=== PATIENT | male | born 1970 | race Caucasian/White ===

== ENCOUNTER 2016-10-04 12:15 | Inpatient (IN) | payer BC ==
--- NOTE | ~2016-10-04 | DS ---
Unit #: [id number] #: [id number] Patient: WILTON AYOUB JR [id number] [address] [address] [id number] I MR#: [id number] NAME: WILTON AYOUB JR ROOM: [facility] Age: 46 Sex: M Admission Date: 10/04/2016 : 1970 Discharge Date: Attending Physician: Lars Zhao M.D. Primary Care Physician: Amanda Tapia A.P.R.N. DISCHARGE SUMMARY DIAGNOSIS Sigmoid diverticulitis with microperforation. HOSPITAL COURSE The patient is a 46-year-old gentleman, who presented with 1-week history of left lower quadrant abdominal pain. CT scan showed what appears to be an inflammation of the colon with air outside the lumen in the retroperitoneal space. He was assess for possible interventional Radiology drainage. This was not possible. He was started on antibiotics. He remained afebrile and had resolution of his pain and tolerate regular diet. DISPOSITION The patient will be discharged home in good condition. DISCHARGE INSTRUCTIONS He is to follow regular diet as tolerated. He is to follow up with Dr. Zhao in 2 weeks. DISCHARGE MEDICATIONS Regular home medications and Flagyl 500 mg q.6 hours x6 days. Colace 100 mg b.i.d. PLAN For outpatient colonoscopy and possible resection. Dictated by... Poli Vee/patty TD: 10/06/2016 07:56 JOB #: [id number] Unit #: [id number] #: [id number] Patient: WILTON AYOUB JR DISCHARGE SUMMARY Page 1 of 1 X Lars Zhao MD DISCHARGE SUMMARY
--- NOTE | ~2016-10-04 | CO ---
Unit #: [id number] #: [id number] Patient: WILTON AYOUB JR [id number] [address] [place], [place] [address] [id number] I MR#: [id number] NAME: WILTON AYOUB JR ROOM: 77749 Age: 46 Sex: M Admission Date: 10/04/2016 : 1970 Attending Physician: Lars Zhao M.D. Primary Care Physician: Amanda Tapia A.P.R.N. CONSULTATION REPORT BRIEF HISTORY The patient is a 46-year-old gentleman with a 1-week history of left lower quadrant abdominal pain. He presented to his primary care doctor who ordered a CT scan. CT scan showed diverticulitis with a 6.5 cm abscess with air-fluid level. He denies any fever or chills. No trauma. PAST MEDICAL HISTORY He has hypertension. PAST SURGICAL HISTORY Hip replacement. SOCIAL HISTORY Does smoke. No alcohol. FAMILY HISTORY Negative for GI malignancy. REVIEW OF SYSTEMS No cardiopulmonary complaints at this time. Ten systems reviewed and negative. PHYSICAL EXAMINATION GENERAL: He is awake, alert, in no distress. VITAL SIGNS: Temperature 98, pulse 92, respirations 16, blood pressure 141/83. HEENT: Unremarkable. NECK: Neck is supple. No JVD. Trachea midline. LUNGS: Clear to auscultation. Bilateral breath sounds symmetric. CARDIOVASCULAR: Regular rate and rhythm. ABDOMEN: His abdomen is soft. It is mildly tender in the left lower quadrant. No point tenderness. No rebound. No masses. No hernias. EXTREMITIES: No clubbing, cyanosis or edema. DIAGNOSTIC STUDIES LABS: White count 11.9, hemoglobin 13. ASSESSMENT Diverticulitis with contained perforation. PLAN Recommend IV fluids, antibiotics and will have interventional radiology assess for possible drainage. Unit #: [id number] #: [id number] Patient: WILTON AYOUB JR Dictated by... Poli Vee/rajesh TD: 10/05/2016 13:05 JOB #: [id number] CONSULTATION REPORT Page 1 of 1 X Lars Zhao MD X CONSULTATION REPORT
[~2016-10-04 12:15] MED LIST: ALEVE; DIOVAN; HCTZ; IBUPROFEN800 MG; PERCOCET 5-3251 TAB PO; PREDNISONE PO; ROBAXIN PO; SIMVASTATIN10 MG; TRICOR134 MG
[2016-10-04 12:18] LABS: BASOPHIL# 0.1 X10e3 (0-0.3); BASOPHIL% 0.5 % (0-2.5); EOSINOPHIL# 0.5 X10e3 (0-0.7); EOSINOPHIL% 4.1 % (0.0-7.0); HEMATOCRIT 40.9 % (38.0-50.0); HEMOGLOBIN 13.9 gm/dL (13.0-16.0); LYMPHOCYTE# 1.8 X10e3 (1.0-3.5); LYMPHOCYTE% 15.2 % (17.0-45.0); MEAN CELL VOLUME 86.9 FL (83-96); MEAN CORPUSCULAR HEMOGLOBIN 29.6 PG (28-34); MEAN CORPUSCULAR HGB CONC 34.1 g/dL (30-36); MEAN PLATELET VOLUME 8.7 FL (6.5-11.5); MONOCYTE# 0.7 X10e3 (0-1.0); NEUTROPHIL# 8.7 X10e3 (1.5-7.1); NEUTROPHIL% 74.2 % (40-75); PLATELET COUNT 310 X10e3 (140-420); RED CELL DISTRIBUTION WIDTH 12.1 % (11.0-15.5); WHITE BLOOD COUNT 11.7 X10e3 (4.0-10.5)
[2016-10-04 12:24] LABS: DIFF IND NO
[2016-10-04 12:45] LABS: ALBUMIN SERUM 3.4 g/dL (3.5-5.0); BILIRUBIN, DIRECT 0.2 mg/dL (0.0-0.2); BILIRUBIN,INDIRECT 0.6 mg/dL (0.0-0.9); BILIRUBIN,TOTAL 0.8 mg/dL (0.2-2.0); BUN/CREATININE RATIO 16.66; CALCIUM SERUM 8.7 mg/dL (8.4-10.2); CREATININE SERUM 0.9 mg/dL (0.6-1.4); GLOM FILT RATE Estimated 103.5 mL/min (>60); POTASSIUM 3.1 mmol/L (3.5-5.1); PROTEIN TOTAL SERUM 7.3 g/dL (6.0-8.3)
[2016-10-04 13:31] LABS: URINE SOURCE CLEAN CATCH
[2016-10-04 13:50] LABS: URINE APPEARANCE CLEAR; URINE BILIRUBIN NEG (NEG); URINE BLOOD NEG (NEG); URINE COLOR YELLOW; URINE GLUCOSE NEG (NEG); URINE KETONE NEG (NEG); URINE LEUKOCYTE ESTERASE NEG (NEG); URINE NITRATE NEG (NEG); URINE PH 5.5 (5-8); URINE PROTEIN NEG (NEG); URINE SPECIFIC GRAVITY 1.051 (1.003-1.035); URINE UROBILINOGEN 0.2 MG/DL (NEG)
[2016-10-04 14:04] LABS: CULTURE INDICATED? NO
[2016-10-04 14:38] LABS: PARTIAL THROMBOPLASTIN TIME 29.3 SECONDS (23.5-31.3); PROTHROMBIN TIME (PATIENT) 10.6 SECONDS (9.6-11.5)
[2016-10-04] MEDS ORDERED: DIOVAN160 MG PO (14:47)
[2016-10-04] MEDS ORDERED: SIMVASTATIN10 MG PO (14:47)
[2016-10-04] MEDS ORDERED: FENOFIBRATE145 M1 PO (14:48)
[2016-10-05 06:09] LABS: HEMATOCRIT 34.9 % (38.0-50.0); MEAN CELL VOLUME 87.7 FL (83-96); MEAN CORPUSCULAR HEMOGLOBIN 29.7 PG (28-34); MEAN CORPUSCULAR HGB CONC 33.8 g/dL (30-36); MEAN PLATELET VOLUME 8.5 FL (6.5-11.5); RED BLOOD COUNT 3.98 X10e (3.90-5.60); RED CELL DISTRIBUTION WIDTH 12.4 % (11.0-15.5); WHITE BLOOD COUNT 11.7 X10e3 (4.0-10.5)
[2016-10-05 06:12] LABS: HEMOGLOBIN 11.8 gm/dL (13.0-16.0)
[2016-10-05 06:46] LABS: BUN/CREATININE RATIO 11.25; CALCIUM SERUM 8.1 mg/dL (8.4-10.2); CREATININE SERUM 0.8 mg/dL (0.6-1.4); GLOM FILT RATE Estimated 108.7 mL/min (>60); POTASSIUM 3.2 mmol/L (3.5-5.1)
[2016-10-06 03:23] LABS: BASOPHIL# 0.1 X10e3 (0-0.3); BASOPHIL% 0.7 % (0-2.5); EOSINOPHIL# 0.5 X10e3 (0-0.7); HEMATOCRIT 37.2 % (38.0-50.0); HEMOGLOBIN 12.2 gm/dL (13.0-16.0); LYMPHOCYTE# 2.5 X10e3 (1.0-3.5); LYMPHOCYTE% 25.7 % (17.0-45.0); MEAN CELL VOLUME 89.7 FL (83-96); MEAN CORPUSCULAR HEMOGLOBIN 29.4 PG (28-34); MEAN CORPUSCULAR HGB CONC 32.8 g/dL (30-36); MONOCYTE# 0.7 X10e3 (0-1.0); MONOCYTE% 7.2 % (3.0-12.0); NEUTROPHIL# 5.9 X10e3 (1.5-7.1); NEUTROPHIL% 61.4 % (40-75); PLATELET COUNT 304 X10e3 (140-420); RED BLOOD COUNT 4.15 X10e (3.90-5.60); RED CELL DISTRIBUTION WIDTH 12.7 % (11.0-15.5); WHITE BLOOD COUNT 9.6 X10e3 (4.0-10.5)
[2016-10-06 03:27] LABS: DIFF IND NO
[2016-10-06] MEDS ORDERED: DOCUSATE SODIU100 MG PO (09:30)
[2016-10-06] MEDS ORDERED: FLAGYL PO (09:31)
[2016-10-06] MEDS ORDERED: KEFLEX500 M1 PO (09:32)
== END 2016-10-06 11:30 | disposition home or self-care (01) | DRG 392 ==
LOC: CED 12:15 → CEDOF 13:48 → C4C 10-05 21:13
PROVIDERS: Emergency Medicine; Radiology Diagnostic Radiology; Surgery
DX: K57.20 Diverticulitis of large intestine with perforation and abscess without bleeding (principal); I10 Essential (primary) hypertension; E78.00 Pure hypercholesterolemia, unspecified; Z96.642 Presence of left artificial hip joint
CPT/HCPCS: 36415; 80048; 80076; 81003; 83690; 85025; 85027; 85610; 85730; 96361; 96365; 96375; 99285; J2270; J2405; J2543

== ENCOUNTER → 2016-10-11 | Outpatient (CLI) | payer BC ==
[~2016-10-11] MED LIST changes: +DIOVAN160 MG PO; +DOCUSATE SODIU100 MG PO; +FENOFIBRATE145 M1 PO; +FLAGYL PO; +HYDROCODON-ACE1 EAC9 PO; +KEFLEX500 M1 PO; +SIMVASTATIN10 MG PO; +VALSARTAN-HCTZ1 EAC1 PO
--- NOTE | ~2016-10-11 | CT134 ---
[facility] A Service of [facility] & [facility] RADIOLOGY TEXT RESULTS PATIENT: WILTON CHAMPION JR LOCATION: [facility] : 74 UNIT #: [id number] AGE: [address]: Lars Zhao MD SEX: M ORDER DR: [id number] [facility] [address] [place], [place] [address] [id number] O MR#: [id number] Acc #: [id number] NAME: WILTON CHAMPION JR : 1970 SEX: M STUDY DATE/TIME: 10/11/2016 15:08 UNIT: [facility] ROOM: STUDY DESCRIPTION: CT Guide Attending Physician: Lars Zhao M.D. Referring Physician: Lars Zhao M.D. Ordering Physician: Lars Zhao M.D. Primary Care Physician: Amanda Tapia A.P.R.N. MEDICAL IMAGING REPORT This report is preliminary unless electronic signature is present EXAM Attempted CT-guided drainage INDICATION MR. Champion is a 46-year-old man with a history of diverticulitis. His most recent CT scan on October 11, 2016 showed an air and fluid containing collection within the left hemipelvis. He was referred for attempted drain placement. TECHNIQUE This CT examination was performed with one or more of the following radiation dose reduction techniques: automatic exposure control, adjustment of mA and/or kV according to patient size, and iterative reconstruction. PROCEDURE The risks, benefits, and alternatives to the procedure were explained to the patient, and signed, informed consent was obtained. He was placed supine on the CT scanner gantry. A preliminary CT scan was performed through the region of interest. An appropriate site overlying the patients collection was selected. The overlying skin was marked. Patient was prepped and draped in the usual sterile fashion. Time-out was performed as per protocol. Skin and subcutaneous tissues were anesthetized with buffered lidocaine. Anesthesia needle was left in place. Repeat CT scan showed only very minimal window into the collection. At this point, the procedure was terminated. The patient did not receive any conscious sedation during the procedure, although he did receive 150 mcg of Fentanyl for pain relief. IMPRESSION I was unable to access this patient's left harry pelvic abscess due to overlying bowel and a very small window. Procedure was subsequently terminated. This was discussed with Dr. Zhao at the termination of the STS. [facility] A Service of [facility] RADIOLOGY TEXT RESULTS PATIENT: WILTON CHAMPION JR LOCATION: [facility] : 74 UNIT #: [id number] AGE: [address]: Lars Zhao MD SEX: M ORDER DR: procedure. We will plan on repeat CT scan on Friday, October 14, to see if the collection has enlarged or become more amenable to drain placement or has improved. Dictated by... Neris Deluna M.D. THIS IS AN ELECTRONICALLY VERIFIED REPORT Neris Deluna M.D. at 10/14/2016 5:08 PM BHAVANI/jolene TD: 10/14/2016 11:11 JOB #: [id number] MEDICAL IMAGING REPORT Page 1 of 1 COPY
== END | disposition home or self-care (01) ==
LOC: CIVR 13:25
DX: K65.1 Peritoneal abscess (principal)
CPT/HCPCS: 77012; J2250; J3010

== ENCOUNTER → 2016-10-11 | Outpatient (CLI) | payer BC ==
--- NOTE | ~2016-10-11 | CT4 ---
[facility] A Service of [facility] RADIOLOGY TEXT RESULTS PATIENT: WILTON AYOUB JR LOCATION: [facility] : 74 UNIT #: [id number] AGE: [address]: Lars Zhao MD SEX: M ORDER DR: [id number] [address] [address] [id number] O MR#: [id number] Acc #: [id number] NAME: WILTON AYOUB : 1970 SEX: M STUDY DATE/TIME: 10/11/2016 8:48 UNIT: [facility] ROOM: STUDY DESCRIPTION: CT Abd and Pelv Wo Cont Attending Physician: Lars Zhao M.D. Referring Physician: Lars Zhao M.D. Ordering Physician: Lars Zhao M.D. Primary Care Physician: Amanda Tapia A.P.R.N. MEDICAL IMAGING REPORT This report is preliminary unless electronic signature is present. EXAM CT of the abdomen and pelvis without contrast, 10/11/2016 COMPARISON 10/04/2016 HISTORY Left lower quadrant pain for over 1 week. Followup. On antibiotics for 7 days. TECHNIQUE Transaxial imaging of the abdomen and pelvis was performed without contrast. This CT exam was performed with one or more of the following radiation dose reduction techniques: automatic exposure control, adjustment of mA and/or kV according to patient size, and iterative reconstruction. COMPARISON Compared directly to the patient's most recent scan of October 04. FINDINGS Scans through the lung bases are normal. The liver and spleen appear unremarkable. Gallbladder is normal. Adrenal glands and pancreas are normal and both kidneys are normal. The air collection identified adjacent to the colon is a little better defined on the current study. It does contain some fluid dependently. The entire collection measures about 7.5 x 4.2 cm. The inflammation around the colon has decreased relative to the last study. Redemonstrated is diffuse diverticulosis. CONCLUSION Overall the inflammation around the sigmoid colon is better, however there is an air and fluid collection present which measures 7.5 x 4.2 cm. It is [facility] A Service of [facility] RADIOLOGY TEXT RESULTS PATIENT: WILTON AYOUB JR LOCATION: [facility] : 74 UNIT #: [id number] AGE: [address]: Lars Zhao MD SEX: M ORDER DR: predominantly air but has a little more fluid in it than it did previously. It likely represents a developing diverticular abscess. At this point it could be aspirated under CT guidance if clinically indicated. Dictated by... Lars Henriquez M.D. THIS IS AN ELECTRONICALLY VERIFIED REPORT Lars Henriquez M.D. at 10/11/2016 4:26 PM Paul TD: 10/11/2016 11:17 JOB #: [id number] MEDICAL IMAGING REPORT Page 1 of 1
== END | disposition home or self-care (01) ==
LOC: SCT 08:36
DX: R10.9 Unspecified abdominal pain (principal); K52.9 Noninfective gastroenteritis and colitis, unspecified
CPT/HCPCS: 74176

== ENCOUNTER → 2016-10-14 | Outpatient (CLI) | payer BC ==
--- NOTE | ~2016-10-14 | CT2 ---
[facility] A Service of [facility] & [facility] RADIOLOGY TEXT RESULTS PATIENT: WILTON CHAMPION JR LOCATION: [facility] : 74 UNIT #: [id number] AGE: [address]: Lars Zhao MD SEX: M ORDER DR: [id number] [facility] [address] [place], [place] [address] [id number] O MR#: [id number] [facility] #: [id number] NAME: WILTON CHAMPION : 1970 SEX: M STUDY DATE/TIME: 10/14/2016 9:30 UNIT: [facility] ROOM: STUDY DESCRIPTION: CT Abd and Pelv W Cont Attending Physician: Lars Zhao M.D. Referring Physician: Lars Zhao M.D. Ordering Physician: Lars Zhao M.D. Primary Care Physician: Amanda Tapia A.P.R.N. MEDICAL IMAGING REPORT This report is preliminary unless electronic signature is present EXAM CT abdomen and pelvis INDICATION Mr. Champion is a 46-year-old gentleman with the history of a perforated diverticulitis. On his most recent CT on 10/11/2016, he was noted to have an air and fluid-containing collection within the left hemipelvis. He did undergo attempted drainage. This was unsuccessful as there was insufficient window for drainage. He returns for a followup. TECHNIQUE Axial CT images were obtained from the dome of the diaphragm through the symphysis pubis following the administration of intravenous contrast material. This CT exam was performed with one or more of the following radiation dose reduction techniques: automatic exposure control, adjustment of mA and/or kV according to patient size, and iterative reconstruction. FINDINGS Images through the lung bases are clear. Patient does have diffuse hepatic steatosis and spleen is enlarged measuring 15.3 cm in AP dimensions. No suspicious hepatic lesions are seen. There is the suggestion of some high-density material within the gallbladder. The possibly of stones or sludge is not excluded. This could be better assessed with gallbladder ultrasound. Adrenal glands, kidneys, and pancreas are within normal limits. Patient is noted to have an air and fluid-containing collection seen within the left hemipelvis. It does appear smaller than on the prior study now measuring 5.3 x 3.0 cm, previously 7.5 x 4.2 cm. There is a second collection which is developing more inferiorly which has increased in size when compared to the prior study now measuring 3.1 x 2.2 cm, STS. [facility] A Service of [facility] RADIOLOGY TEXT RESULTS PATIENT: WILTON CHAMPION JR LOCATION: [facility] : 74 UNIT #: [id number] AGE: [address]: Lars Zhao MD SEX: M ORDER DR: previously 2.1 x 1.6 cm. Patient is also noted to have some reactive fluid seen within the mesentery which is new when compared to the prior examination. There is persistent wall thickening involving the sigmoid colon. A trace amount of free fluid is seen tracking along the left pericolic gutter. There is no evidence of mechanical bowel obstruction. The appendix is visualized and is within normal limits. There is a small fat-containing umbilical hernia. Prostate gland contains a few dystrophic calcifications. Urinary bladder is within normal limits. Patient does have a left hip arthroplasty. Degenerative changes are noted at L5-S1. There is some atherosclerotic involvement of the abdominal aorta which continues into the iliac vessels, although I am not convinced it results in any flow-limiting stenosis. IMPRESSION 1. The patient is again noted to have a collection within the left hemipelvis. This measures up to 5.3 x 3 cm, previously it measured 7.5 x 4.2 cm. So it has decreased slightly in size. It is not amenable to percutaneous drainage due to overlying colon. A second collection, which is seen more inferiorly, has increased in size and now measures up to 3.1 x 2.2 cm, previously 2.1 x 1.6 cm, which is favored to represent an additional small abscess. It is also not amenable to percutaneous drainage. Furthermore, patient is now noted to have a small amount of loculated fluid seen in between bowel loops likely reflecting some reactive fluid as is trace free fluid along the left pericolic gutter. Process is not resulting in any obstruction at this time. 2. High-density material within the gallbladder. This potentially may reflect some stones or sludge, although it does not layer dependently, it would be better assessed with dedicated gallbladder ultrasound. 3. Splenomegaly of uncertain clinical significance. 4. Diffuse hepatic steatosis. 5. Patient's sigmoid colon remains persistently thick-walled and inflamed. This extends diffusely throughout the sigmoid colon. 6. Also noted, but not mentioned in the report, anterior to the proximal sigmoid colon, there is an additional very tiny localized collection. I am uncertain if this reflects a diverticulum or an additional small localized perforation. Dictated by... Neris Deluna M.D. THIS IS AN ELECTRONICALLY VERIFIED REPORT Neris Deluna M.D. at 10/14/2016 5:08 PM AFF/aa TD: 10/14/2016 13:14 JOB #: [id number] [facility] A Service of [facility] & [facility] RADIOLOGY TEXT RESULTS PATIENT: WILTON CHAMPION JR [id number] 74 UNIT #: [id number] AGE: [address]: Lars Zhao MD SEX: M ORDER DR: MEDICAL IMAGING REPORT Page 1 of 1 COPY
== END | disposition home or self-care (01) ==
LOC: CCAT 08:45
DX: T81.4XXA Infection following a procedure, initial encounter (principal); R16.1 Splenomegaly, not elsewhere classified; K76.0 Fatty (change of) liver, not elsewhere classified; K52.9 Noninfective gastroenteritis and colitis, unspecified
CPT/HCPCS: 74177; Q9967

== ENCOUNTER 2016-10-15 05:25 | Inpatient (IN) | payer BC ==
--- NOTE | ~2016-10-15 | DS ---
Unit #: [id number] #: [id number] Patient: WILTON AYOUB JR [id number] [address] [place], [place] [address] [id number] I MR#: [id number] NAME: WILTON AYOUB JR ROOM: 462 Age: 46 Sex: M Admission Date: 10/15/2016 : 1970 Discharge Date: 10/19/2016 Attending Physician: Brian Hernandez III, M.D. Primary Care Physician: Amanda Tapia A.P.R.N. DISCHARGE SUMMARY CONSULTATIONS None. PROCEDURE PERFORMED On the day of admission, he underwent exploratory laparotomy with takedown of splenic flexure, sigmoid colectomy, and colorectal anastomosis. ADMITTING DIAGNOSIS History of acute diverticulitis with pelvic abscess. DISCHARGE DIAGNOSIS History of acute diverticulitis with pelvic abscess. BRIEF HOSPITAL COURSE This is a 46-year-old gentleman who was admitted for treatment of acute diverticulitis with microperforation and pelvic abscess. He underwent bowel prep the day before admission and underwent exploratory laparotomy and sigmoid colectomy with anastomosis. Postoperatively, he had an uneventful course. He did run some fevers and we followed up on his cultures which showed primarily E. coli and he was switched to Levaquin based on sensitivities and had improvement in his white count and fever after that. He was advanced to a regular diet and was having bowel movements prior to discharge. DISPOSITION Discharge to home. He is to follow up with me in the office on Friday to have his ethan removed. He was given a script for [place] and told to resume his home medications. He has been instructed not to drive until off pain meds for 48 hours and no lifting greater than ten pounds and it is okay to shower. Dictated by... Brian Hernandez III, M.D. VCL/jose TD: 10/22/2016 06:50 JOB #: [id number] Unit #: [id number] #: [id number] Patient: WILTON AYOUB JR DISCHARGE SUMMARY Page 1 of 1 X Brian Hernandez III, MD X DISCHARGE SUMMARY
--- NOTE | ~2016-10-15 | OR ---
Unit #: [id number] #: [id number] Patient: WILTON AYOUB JR [id number] [address] [place], [place] [address] [id number] Monika MR#: [id number] NAME: WILTON AYOUB JR ROOM: 462 Date of Procedure: 10/15/2016 Admission Date: 10/15/2016 Surgeon: Brian Hernandez III, M.D. : 1970 Attending Physician: Brian Hernandez III, M.D. Primary Care Physician: Amanda Tapia A.P.R.N. OPERATIVE REPORT PREOPERATIVE DIAGNOSES Acute diverticulitis with pelvic abscess. POSTOPERATIVE DIAGNOSES Acute diverticulitis with pelvic abscess. PROCEDURES PERFORMED 1. Exploratory laparotomy with sigmoid colectomy with colorectal anastomosis. 2. Takedown of splenic flexure. 3. Drainage of multiple pelvic abscesses. INTERNATIONAL NURSE Dr. Wilton Cortez. SPECIMEN Cultures were sent to microbiology and colon was sent to pathology. COMPLICATIONS None apparent. ESTIMATED BLOOD LOSS 100 mL. DRAINS None. INDICATIONS FOR PROCEDURE This is a 46-year-old gentleman, who presented with his first episode of acute diverticulitis and had what looked like a microperforation with pelvic abscess that was not amenable to percutaneous drainage. He was placed on antibiotics and underwent a repeat CT scan, which showed smaller abscess initially, but had 2 other small abscesses that were forming. He is here today after bowel prepping for attempts of colon resection with anastomosis. He does understand the possibility of having undergo colostomy placement as well as complications of the procedure that include bleeding, infection, abscess, and possibility of anastomotic leak as well as injury to ureters. DESCRIPTION OF PROCEDURE After consent was obtained, the patient was brought to the operating room and placed in the supine position. General anesthetic was administered. Unit #: [id number] #: [id number] Patient: WILTON AYOUB JR NG tube and Nino catheter were placed. He was then placed in Mark stirrups. I irrigated his rectum with Betadine. We then prepped and draped his abdomen and perineum in standard surgical fashion. I made a midline laparotomy and entered the peritoneal cavity without any difficulty. I placed a protractor to help protect the wound edges. I then was able to mobilize the sigmoid colon and in doing so, broke up the pelvic abscesses. Cultures were obtained. I then began by scoring the lateral peritoneal attachments of the sigmoid colon as well as along the left colon and took down the splenic flexure to mobilize this, so that I would have adequate length of the proximal colon for the colorectal anastomosis. Once I had the colon mobilized, I fired a ANNA stapler across the proximal sigmoid colon. I then took down the mesenteric attachments with Kiersten clamps and 0 silk ties. Once I had this down to the peritoneal reflection, I used a contour stapler to divide the distal sigmoid colon. The specimen was then passed off the table. I irrigated and had good hemostasis. Next, I divided the proximal colon. I brought the 29 mm EEA Anvil out through the antimesenteric border and re-stapled the proximal end with a ANNA 75 stapler. I then inserted the other end of the stapler per rectum. This was brought up through the rectal pouch and once it was in good position, the spike was deployed. I then attached the 2 ends of the colon together and once the stapler was locked in good position, it was fired. There was no tension or twisting of the proximal colon. Next, the stapler was disengaged and removed without difficulty. I tested the anastomosis by submerging it under water and occluding the proximal colon and insufflating air per rectum. There was no air leak indicating that this was watertight. I then again irrigated and had good hemostasis. All needle, sponge, and instrument counts were correct x2. I then laid the omentum over the anastomosis. I then reapproximated the fascia with interrupted #1 Vicryl sutures. The skin edges were reapproximated with stapling device. He tolerated the procedure without any problems and returned to the recovery room in stable condition. Dictated by... Brian Hernandez III, M.D. VCL/patty TD: 10/16/2016 07:31 JOB #: [id number] OPERATIVE REPORT Page 1 of 1 X Brian Hernandez III, MD PROCEDURE OPERATIVE NOTE
--- NOTE | ~2016-10-15 | EKG ---
PATIENT: WILTON AYOUB UNIT #: [id number] Ventricular Rate: 72 BPM Atrial Rate: 72 BPM P-R Interval: 148 ms QRS Duration: 88 ms Q-T Interval: 406 ms QTC Calculation(Bezet): 444 ms P [place]: 40 degrees Calculated R [place]: 78 degrees Calculated T [place]: 30 degrees Diagnosis Line: Normal sinus rhythm Diagnosis Line: Normal ECG Diagnosis Line: When compared with ECG of 07-NOV-2014 18:13, Diagnosis Line: No significant change was found Diagnosis Line: Confirmed by MC MINOR MD ([id number]) on 10/15/2016 Diagnosis Line: 10:19:06 PM INTERPRETING MD: IVÁN NOVOA
[~2016-10-15 05:25] MED LIST changes: -HYDROCODON-ACE1 EAC9 PO; -VALSARTAN-HCTZ1 EAC1 PO
[2016-10-15 07:57] LABS: BUN/CREATININE RATIO 16.25; CREATININE SERUM 0.8 mg/dL (0.6-1.4); GLOM FILT RATE Estimated 108.7 mL/min (>60); POTASSIUM 3.7 mmol/L (3.5-5.1)
[2016-10-15] MEDS ORDERED: VALSARTAN-HCTZ1 EAC1 PO (17:59)
[2016-10-16 03:51] LABS: BASOPHIL% 0.1 % (0-2.5); DIFF IND YES; EOSINOPHIL% 0.1 % (0.0-7.0); HEMATOCRIT 36.4 % (38.0-50.0); HEMOGLOBIN 12.2 gm/dL (13.0-16.0); LYMPHOCYTE# 1.4 X10e3 (1.0-3.5); LYMPHOCYTE% 8.3 % (17.0-45.0); MEAN CELL VOLUME 88.1 FL (83-96); MEAN CORPUSCULAR HEMOGLOBIN 29.4 PG (28-34); MEAN CORPUSCULAR HGB CONC 33.4 g/dL (30-36); MEAN PLATELET VOLUME 8.8 FL (6.5-11.5); MONOCYTE# 1.1 X10e3 (0-1.0); MONOCYTE% 6.4 % (3.0-12.0); NEUTROPHIL# 14.7 X10e3 (1.5-7.1); NEUTROPHIL% 85.1 % (40-75); PLATELET COUNT 376 X10e3 (140-420); RED BLOOD COUNT 4.14 X10e (3.90-5.60); RED CELL DISTRIBUTION WIDTH 12.8 % (11.0-15.5); WHITE BLOOD COUNT 17.3 X10e3 (4.0-10.5)
[2016-10-16 04:11] LABS: PLATELET ESTIMATE NORMAL (NORMAL)
[2016-10-16 04:12] LABS: RBC NORMAL YES
[2016-10-16 04:13] LABS: BUN/CREATININE RATIO 12.22; CREATININE SERUM 0.9 mg/dL (0.6-1.4); GLOM FILT RATE Estimated 103.5 mL/min (>60); POTASSIUM 3.9 mmol/L (3.5-5.1)
[2016-10-17 03:43] LABS: HEMATOCRIT 33.5 % (38.0-50.0); HEMOGLOBIN 11.2 gm/dL (13.0-16.0); MEAN CELL VOLUME 88.2 FL (83-96); MEAN CORPUSCULAR HEMOGLOBIN 29.5 PG (28-34); MEAN CORPUSCULAR HGB CONC 33.5 g/dL (30-36); MEAN PLATELET VOLUME 8.7 FL (6.5-11.5); RED BLOOD COUNT 3.8 X10e (3.90-5.60); RED CELL DISTRIBUTION WIDTH 12.5 % (11.0-15.5); WHITE BLOOD COUNT 13.7 X10e3 (4.0-10.5)
[2016-10-19 02:58] LABS: BASOPHIL# 0.1 X10e3 (0-0.3); BASOPHIL% 0.6 % (0-2.5); EOSINOPHIL# 0.5 X10e3 (0-0.7); EOSINOPHIL% 4.8 % (0.0-7.0); HEMATOCRIT 32.8 % (38.0-50.0); HEMOGLOBIN 10.8 gm/dL (13.0-16.0); LYMPHOCYTE# 2.7 X10e3 (1.0-3.5); LYMPHOCYTE% 23.6 % (17.0-45.0); MEAN CELL VOLUME 89.2 FL (83-96); MEAN CORPUSCULAR HEMOGLOBIN 29.4 PG (28-34); MEAN PLATELET VOLUME 8.9 FL (6.5-11.5); MONOCYTE# 0.8 X10e3 (0-1.0); MONOCYTE% 7.1 % (3.0-12.0); NEUTROPHIL# 7.2 X10e3 (1.5-7.1); NEUTROPHIL% 63.9 % (40-75); PLATELET COUNT 367 X10e3 (140-420); RED BLOOD COUNT 3.68 X10e (3.90-5.60); RED CELL DISTRIBUTION WIDTH 12.2 % (11.0-15.5); WHITE BLOOD COUNT 11.3 X10e3 (4.0-10.5)
[2016-10-19 02:59] LABS: DIFF IND NO
[2016-10-19] MEDS ORDERED: HYDROCODON-ACE1 EAC9 PO (08:23)
== END 2016-10-19 10:05 | disposition home or self-care (01) | DRG 330 ==
LOC: CSUR 05:25 → CPACUOF 09:12 → C4C 15:50
PROVIDERS: Surgery
PROC: 0DTN0ZZ Resection of Sigmoid Colon, Open Approach (ICD-10-PCS; principal; 2016-10-15 08:30)
DX: K57.20 Diverticulitis of large intestine with perforation and abscess without bleeding (principal); I10 Essential (primary) hypertension; B96.20 Unspecified Escherichia coli [E. coli] as the cause of diseases classified elsewhere; E78.00 Pure hypercholesterolemia, unspecified; Z79.899 Other long term (current) drug therapy
CPT/HCPCS: 80048; 85025; 85027; 87070; 87075; 87077; 87186; 87205; 88304; 88307; 93005; J0330; J1100; J1170; J1650; J1885; J1956; J2250; J2270; J2543; J2710; J3010